=== PATIENT | female | born 1990 | race Caucasian/White ===

== ENCOUNTER 2023-04-23 05:33 | Day surgery (SDC) | payer BC ==
[2023-04-22 10:14] VITALS: BMI 25.3
[2023-04-23 06:54] LABS: BHCG - Serum Negative (NEGATIVE); Pregs Control Background? CLEAR/WHITE (CLR/WHITE); Pregs Control Bar Appear? YES (CONTROL BAR)
[2023-04-23 07:00] LABS: Hemoglobin 14.9 g/dL (12.0-15.5); Mean Corpuscular Hemoglobin 28.8 pg (27.0-33.0); Mean Corpuscular Volume 87.2 fl (81.6-98.3); Mean Platelet Volume 10.5 fl (7.4-10.4); Platelet Count 182 10x3/uL (150-450); Red Blood Cell (RBC) Count 5.17 10x6/uL (3.90-5.03); White Blood Cell (WBC) Count 5.5 10x3/uL (3.5-10.5)
[2023-04-23] MEDS ORDERED: Lidocaine 2% MPF 10 ML AMP (For Epidural Use) ONE (07:01)
[2023-04-23] MEDS ORDERED: PROPOFOL 40 ML ONE (07:01)
[2023-04-23] MEDS ORDERED: Midazolam HCl 2 mg/2 ml Vial ONE (07:01)
[2023-04-23] MEDS ORDERED: Ondansetron PF 4 MG/2 ML Vial ONE (07:01)
[2023-04-23] MEDS ORDERED: Dexamethasone 4 mg/ml Vial ONE (07:01)
[2023-04-23 07:02] LABS: Anion Gap 16 mmol/L (10-20); BUN (Urea Nitrogen) 8 mg/dL (7.0-18.7); Calc. Creatinine Clearance 87 mL/min (70-130); Carbon Dioxide 25 mmol/L (22-29); Chloride 104 mmol/L (98-107); Potassium 3.7 mmol/L (3.5-5.1); Sodium 141 mmol/L (136-145)
[2023-04-23] MEDS ORDERED: Clindamycin/D5W 900 mg/50 ml Premix Bag ONE (07:02)
[2023-04-23 07:03] LABS: Calcium 9.3 mg/dL (7.8-10.44); Estimated GFR 83; Glucose 91 mg/dL (70-105)
[2023-04-23] MEDS ORDERED: Bupivacaine PF 0.5% 30 ML VIAL ONE (07:15)
[2023-04-23] MEDS ORDERED: EPINEPHrine 1 MG/ML AMP ONE (07:15)
[2023-04-23] MEDS ORDERED: ePHEDrine Sulfate 50 MG/10 ML VIAL ONE (07:29)
[2023-04-23] MEDS ORDERED: Potassium Iodide Solution 14 ML BOT ONE ×2 (07:55→12:00)
== END 2023-04-23 08:50 | disposition home or self-care (01) ==
LOC: CSHSDC 05:33
PROVIDERS: ATTEND Obstetrics & Gynecology
PROC: 0UBC7ZZ Excision of Cervix, Via Natural or Artificial Opening (ICD-10-PCS; principal; 2023-04-23)
DX: N87.1 Moderate cervical dysplasia (principal); R87.810 Cervical high risk human papillomavirus (HPV) DNA test positive; N94.9 Unspecified condition associated with female genital organs and menstrual cycle; Z88.1 Allergy status to other antibiotic agents; Z79.899 Other long term (current) drug therapy
CPT/HCPCS: 80048; 84703; 85027; 88305; J0171; J1100; J2250; J2405; J2704; J3490; S0020